=== PATIENT | female | born 1955 | race Caucasian/White ===

== ENCOUNTER 2018-05-08 20:59 | Emergency (ER) | payer OTHER | END 2018-05-08 23:38 | disposition home or self-care (01) | LOC: EDH 20:59 | DX: S90.121A Contusion of right lesser toe(s) without damage to nail, initial encounter (principal); E78.5 Hyperlipidemia, unspecified; Z98.51 Tubal ligation status; Z88.2 Allergy status to sulfonamides; X58.XXXA Exposure to other specified factors, initial encounter; Y93.01 Activity, walking, marching and hiking; Y92.89 Other specified places as the place of occurrence of the external cause; Y99.8 Other external cause status | CPT/HCPCS: 73630 ==

== ENCOUNTER 2020-11-08 07:57 | Emergency (ER) | payer OTHER ==
[~2020-11-08] VITALS: Ht 162.6 cm; Wt 59.0 kg
[2020-11-08 07:59] VITALS: BP 159/74
[2020-11-08 10:27] VITALS: BP 145/70
== END 2020-11-08 11:07 | disposition home or self-care (01) ==
LOC: EDH 07:57
DX: S96.911A Strain of unspecified muscle and tendon at ankle and foot level, right foot, initial encounter (principal); Z88.2 Allergy status to sulfonamides; X58.XXXA Exposure to other specified factors, initial encounter; Y93.89 Activity, other specified; Y92.89 Other specified places as the place of occurrence of the external cause; Y99.8 Other external cause status
CPT/HCPCS: 29540; 73600

== ENCOUNTER 2021-08-31 06:10 | Emergency (ER) | payer MEDICARE, OTHER ==
[~2021-08-31] VITALS: Ht 162.6 cm; Wt 67.6 kg
[2021-08-31 06:14] VITALS: BP 134/71
[2021-08-31] MEDS ORDERED: CYCL10TA16 PO (06:42)
[2021-08-31] MEDS ORDERED: NAPR-1180 PO (06:42)
[2021-08-31] MEDS ORDERED: ORPHENADRINE CITRATE 30 MG/ML ML IM SCH (07:00)
[2021-08-31] MEDS ORDERED: MORPHINE 4 MG SYG IM SCH (07:00)
[2021-08-31] MEDS ORDERED: ONDANSETRON ODT 4MG TAB SL SCH (07:00)
== END 2021-08-31 07:19 | disposition home or self-care (01) ==
LOC: EDH 06:10
DX: M62.830 Muscle spasm of back (principal); Z88.2 Allergy status to sulfonamides; M54.6 Pain in thoracic spine
CPT/HCPCS: 96372 ×2; 99284; J2270; J2360

== ENCOUNTER 2022-09-02 16:44 | Inpatient (IN) | payer MEDICARE ==
[~2022-09-02] VITALS: Ht 162.6 cm; Wt 67.2 kg
[~2022-09-02 16:44] MED LIST: CYCL10TA16 PO; NAPR-1180 PO
[2022-09-02 17:15] LABS: BASOPHILS % (AUTO) 0.3 % (0.0-5.0); EOSINOPHILS % (AUTO) 0.4 % (0.0-8.0); HEMATOCRIT 39.3 % (36-48); LYMPHOCYTES % (AUTO) 11.7 % (21.0-51.0); MEAN CORPUSCULAR HEMOGLOBIN 30.4 pg (27.0-33.0); MEAN CORPUSCULAR HGB CONC 34.1 g/dL (32.0-36.0); MEAN CORPUSCULAR VOLUME 89.1 fL (79-99); NEUTROPHILS % (AUTO) 78.3 % (40.0-77.0); PLATELET COUNT (AUTO) 308 K/uL (130-400); RED BLOOD CELL COUNT(AUTO) 4.41 MIL/uL (4.00-5.50); RED CELL DISTRIBUTION WIDTH 12.6 % (11.0-15.5); WHITE BLOOD COUNT (AUTO) 14.8 K/uL (4.8-10.8)
[2022-09-02 17:16] LABS: APPEARANCE,URINE CLOUDY (CLEAR); BILIRUBIN,URINE NEGATIVE (NEGATIVE); COLOR,URINE LIGHT-YELLOW (YELLOW); GLUCOSE, URINE (UA) NEGATIVE (NEGATIVE); KETONES,URINE NEGATIVE (NEGATIVE); LEUKOCYTE ESTERASE ,URINE NEGATIVE Leu/uL (NEGATIVE); NITRATE,URINE NEGATIVE (NEGATIVE); OCCULT BLOOD,URINE SMALL (NEGATIVE); PROTEIN,URINE NEGATIVE (NEGATIVE); UROBILINOGEN,URINE 0.2 mg/dL (0.2-1.0)
[2022-09-02 17:20] LABS: BACTERIA,URINE RARE /HPF (None Seen); MUCUS,URINE RARE LPF (None Seen); SQUAMOUS EPITHELIAL CELL,UR RARE /HPF (0-2); WBC,URINE 0-1 /HPF (0-1)
[2022-09-02] MEDS ORDERED: ZOSYN 3.375GM+NS 50ML 50 ML IVPB ONE (17:26)
[2022-09-02 17:28] LABS: POTASSIUM 3.2 mmol/L (3.5-5.1)
[2022-09-02] MEDS ORDERED: ZOSYN 3.375GM +NS 50ML IVPB ONE (17:30)
[2022-09-02] MEDS ORDERED: ONDANSETRON 4MG INJ IV ONE (17:30)
[2022-09-02] MEDS ORDERED: MORPHINE 4 MG SYG IVP ONE (17:30)
[2022-09-02 17:37] LABS: ALBUMIN 3.3 g/dL (3.5-5.0); TOTAL PROTEIN, SERUM 6.9 g/dL (6.0-8.3)
[2022-09-02] MEDS ORDERED: IOHEXOL-350 75 ML VIAL IV ONE (18:23)
[2022-09-02] MEDS ORDERED: HYDROMORPHONE 1 MG INJ IVP ONE (19:00)
[2022-09-02] MEDS ORDERED: ONDANSETRON 4MG INJ IVP ONE (19:30)
[2022-09-02] MEDS ORDERED: ACETAMINOPHEN 325 MG TAB PO PRN ×2 (20:30)
[2022-09-02] MEDS ORDERED: ONDANSETRON 4MG INJ IV PRN (20:30)
[2022-09-02] MEDS ORDERED: 0.9% NACL 500ML IV.SOLN 500 ML IV ONE (20:30)
[2022-09-02] MEDS: 0.9%NACL 1000ML 1,000 ML IV SCH (20:57)
[2022-09-02] MEDS: ZOSYN 3.375GM+NS 50ML 50 ML IVPB SCH (20:57)
[2022-09-02] MEDS: FAMOTIDINE 20MG VIAL IV SCH (21:52)
[2022-09-02 22:15] LABS: MAGNESIUM 1.7 mg/dL (1.80-2.40); POTASSIUM 3.4 mmol/L (3.5-5.1)
[2022-09-02 22:18] LABS: INR 0.94 (0.85-1.15); PROTHROMBIN TIME 10.3 SEC (9.6-11.6)
[2022-09-02 22:19] LABS: PARTIAL THROMBOPLASTIN TIME 25.6 SEC (26.3-35.5)
[2022-09-02 22:45] VITALS: BP 146/72
[2022-09-02] MEDS ORDERED: HYDROMORPHONE 0.5 MG SYG (0.5MG/0.5ML) IVP ONE (23:00)
[2022-09-03] VITALS (28 sets, daily range): BP systolic 119–170; BP diastolic 47–90
[2022-09-03] MEDS: MORPHINE 4 MG SYG IV PRN (04:01)
[2022-09-03 05:08] LABS: HEMATOCRIT 36.6 % (36-48); MEAN CORPUSCULAR HEMOGLOBIN 30.7 pg (27.0-33.0); MEAN CORPUSCULAR HGB CONC 33.3 g/dL (32.0-36.0); RED BLOOD CELL COUNT(AUTO) 3.98 MIL/uL (4.00-5.50); RED CELL DISTRIBUTION WIDTH 12.5 % (11.0-15.5); WHITE BLOOD COUNT (AUTO) 14.7 K/uL (4.8-10.8)
[2022-09-03] MEDS ORDERED: PREM125 PO (05:20)
[2022-09-03] MEDS ORDERED: MONT-39 PO (05:20)
[2022-09-03] MEDS ORDERED: OXYB15TA19 PO (05:20)
[2022-09-03 05:21] LABS: MAGNESIUM 1.6 mg/dL (1.80-2.40); POTASSIUM 3.2 mmol/L (3.5-5.1)
[2022-09-03] MEDS: ZOSYN 3.375GM+NS 50ML 50 ML IVPB SCH ×3 (05:32→19:47)
[2022-09-03] MEDS: POTASSIUM CHLORIDE 20MEQ/100ML 100 ML IV PRN ×2 (05:33→09:11)
[2022-09-03] MEDS: 0.9%NACL 1000ML 1,000 ML IV SCH ×3 (06:30→19:54)
[2022-09-03] MEDS ORDERED: HYDRALAZINE 20MG/ML VIAL IV PRN (07:30)
[2022-09-03] MEDS ORDERED: MAGNESIUM 2GM PREMIX 50ML 50 ML IV PRN (07:30)
[2022-09-03] MEDS: KETOROLAC 15MG/ML VIAL (15MG/ML) IV PRN ×3 (09:03→19:46)
[2022-09-03] MEDS: FAMOTIDINE 20MG VIAL IV SCH ×2 (09:03→19:46)
[2022-09-03] MEDS ORDERED: PROPOFOL 10 MG/ML 20ML VIAL IV ONE ×2 (14:44→16:43)
[2022-09-03] MEDS ORDERED: FENTANYL CITRATE PF 50 MCG/1 ML 5ML AMP IV ONE (14:44)
[2022-09-03] MEDS ORDERED: MIDAZOLAM HCL 1 MG/ML 2ML VIAL ONE ×2 (14:44→15:02)
[2022-09-03] MEDS ORDERED: ROCURONIUM 10MG/1ML SYR 10 MG/ML ML ONE (14:54)
[2022-09-03] MEDS ORDERED: ROPIVACAINE 0.5% 5MG/ML 30ML IJ ONE (14:59)
[2022-09-03] MEDS ORDERED: LIDOCAINE 1%-EPI 1:100,000 20 ML VIAL IJ ONE (15:00)
[2022-09-03] MEDS ORDERED: ONDANSETRON 4MG INJ ONE (16:20)
[2022-09-03] MEDS ORDERED: NEOSTIGMINE 5MG/5ML SYR IV ONE (16:21)
[2022-09-03] MEDS ORDERED: GLYCOPYRROLATE 1 MG/5 ML SYRINGE ONE (16:21)
[2022-09-03] MEDS ORDERED: KETOROLAC 30MG VIAL (30MG/ML) ONE (16:27)
[2022-09-03] MEDS ORDERED: RACEPINEPHRINE HCL 2.25% 0.5 ML NEB SOLN ONE (16:44)
[2022-09-03] MEDS ORDERED: HYDROMORPHONE 1 MG INJ ONE (16:54)
[2022-09-04] MEDS: MORPHINE 4 MG SYG IV PRN (00:24)
[2022-09-04] MEDS ORDERED: LATA2.5D14 OU (03:01)
[2022-09-04] MEDS ORDERED: TIMO.25OS OU (03:01)
[2022-09-04 04:00] VITALS: BP 99/66
[2022-09-04 04:45] LABS: BASOPHILS % (AUTO) 0.2 % (0.0-5.0); EOSINOPHILS % (AUTO) 0.5 % (0.0-8.0); HEMATOCRIT 34.1 % (36-48); LYMPHOCYTES % (AUTO) 10.6 % (21.0-51.0); MEAN CORPUSCULAR HEMOGLOBIN 30.5 pg (27.0-33.0); MEAN CORPUSCULAR HGB CONC 33.1 g/dL (32.0-36.0); MEAN CORPUSCULAR VOLUME 92.2 fL (79-99); MONOCYTES % (AUTO) 8.5 % (3.0-13.0); NEUTROPHILS % (AUTO) 79.7 % (40.0-77.0); PLATELET COUNT (AUTO) 254 K/uL (130-400); RED CELL DISTRIBUTION WIDTH 12.7 % (11.0-15.5); WHITE BLOOD COUNT (AUTO) 10.2 K/uL (4.8-10.8)
[2022-09-04] MEDS: ZOSYN 3.375GM+NS 50ML 50 ML IVPB SCH ×2 (04:48→12:45)
[2022-09-04] MEDS: KETOROLAC 15MG/ML VIAL (15MG/ML) IV PRN ×2 (04:48→10:39)
[2022-09-04 05:08] LABS: ALBUMIN 2.4 g/dL (3.5-5.0); CREATININE 0.9 mg/dL (0.5-1.5); MAGNESIUM 2.1 mg/dL (1.80-2.40); POTASSIUM 3.7 mmol/L (3.5-5.1); TOTAL PROTEIN, SERUM 5.7 g/dL (6.0-8.3)
[2022-09-04 07:05] VITALS: BP 105/65
[2022-09-04] MEDS ORDERED: MONTELUKAST SODIUM 10 MG TAB PO SCH (09:00)
[2022-09-04] MEDS ORDERED: OXYBUTYNIN CHLORIDE 15 MG PO SCH (09:00)
[2022-09-04] MEDS: FAMOTIDINE 20MG VIAL IV SCH (10:39)
[2022-09-04 11:05] VITALS: BP 123/52
[2022-09-04] MEDS: 0.9%NACL 1000ML 1,000 ML IV SCH (12:30)
[2022-09-04 15:05] VITALS: BP 136/66
== END 2022-09-04 18:15 | disposition home or self-care (01) | DRG 342 ==
LOC: EDH 16:44 → EDHIP 20:12 → 3CH 22:41
PROVIDERS: ADMIT Internal Medicine; ATTEND Internal Medicine
PROC: 0DTJ4ZZ Resection of Appendix, Percutaneous Endoscopic Approach (ICD-10-PCS; principal; 2022-09-03 16:06)
DX: K35.80 Unspecified acute appendicitis (principal); E44.0 Moderate protein-calorie malnutrition; E87.6 Hypokalemia; I10 Essential (primary) hypertension; Z80.0 Family history of malignant neoplasm of digestive organs; Z80.1 Family history of malignant neoplasm of trachea, bronchus and lung; Z80.8 Family history of malignant neoplasm of other organs or systems; Z90.710 Acquired absence of both cervix and uterus; Z68.25 Body mass index [BMI] 25.0-25.9, adult; Z88.2 Allergy status to sulfonamides
CPT/HCPCS: 36415; 74177; 80048; 80053; 81001; 83605; 83690; 83735; 84132; 84484; 85025; 85027; 85610; 85730; 87040; 93005; G0378; J1170; J1885; J2250; J2270; J2405; J2543; J2704; J2710; J2795; J3010; J3475; J3480; J3490; Q9967

== ENCOUNTER 2022-09-21 09:07 | Observation (INO) | payer MEDICARE ==
[~2022-09-21] VITALS: Ht 162.6 cm; Wt 65.4 kg
[~2022-09-21 09:07] MED LIST changes: -CYCL10TA16 PO; +LATA2.5D14 OU; +MONT-39 PO; -NAPR-1180 PO; +OXYB15TA19 PO; +PREM125 PO; +TIMO.25OS OU
[2022-09-21 09:32] LABS: HEMATOCRIT 42.5 % (36-48); MEAN CORPUSCULAR HEMOGLOBIN 30.1 pg (27.0-33.0); MEAN CORPUSCULAR HGB CONC 32.9 g/dL (32.0-36.0); MEAN CORPUSCULAR VOLUME 91.4 fL (79-99); RED BLOOD CELL COUNT(AUTO) 4.65 MIL/uL (4.00-5.50); RED CELL DISTRIBUTION WIDTH 12.7 % (11.0-15.5)
[2022-09-21 09:44] LABS: POTASSIUM 3.8 mmol/L (3.5-5.1)
[2022-09-21 09:48] LABS: ALBUMIN 3.7 g/dL (3.5-5.0); TOTAL PROTEIN, SERUM 7.5 g/dL (6.0-8.3)
[2022-09-21] MEDS ORDERED: PANTOPRAZOLE 40 MG/VIAL IVP ONE (10:00)
[2022-09-21 10:43] LABS: APPEARANCE,URINE CLEAR (CLEAR); BILIRUBIN,URINE NEGATIVE (NEGATIVE); COLOR,URINE LIGHT-YELLOW (YELLOW); GLUCOSE, URINE (UA) NEGATIVE (NEGATIVE); KETONES,URINE NEGATIVE (NEGATIVE); LEUKOCYTE ESTERASE ,URINE NEGATIVE Leu/uL (NEGATIVE); NITRATE,URINE NEGATIVE (NEGATIVE); OCCULT BLOOD,URINE SMALL (NEGATIVE); PH,URINE 7.5 (5.0-8.0); PROTEIN,URINE NEGATIVE (NEGATIVE); UROBILINOGEN,URINE 0.2 mg/dL (0.2-1.0)
[2022-09-21 10:52] LABS: SQUAMOUS EPITHELIAL CELL,UR RARE /HPF (0-2); WBC,URINE 0-1 /HPF (0-1)
[2022-09-21] MEDS ORDERED: TAMSULOSIN HCL 0.4 MG CAP.ER.24H PO ONE (13:00)
[2022-09-21] MEDS ORDERED: METOCLOPRAMIDE 10 MG TABLET PO ONE (13:00)
[2022-09-21] MEDS ORDERED: ONDANSETRON 4MG INJ IV PRN (15:00)
[2022-09-21] MEDS ORDERED: ACETAMINOPHEN 325 MG TAB PO PRN (15:00)
[2022-09-21] MEDS ORDERED: HYDROMORPHONE 0.5 MG SYG (0.5MG/0.5ML) IVP PRN (15:30)
[2022-09-21] MEDS: ZOSYN 3.375GM +NS 50ML IVPB SCH ×2 (15:33→22:42)
[2022-09-21] MEDS: LACTATED RINGERS 1000ML 1,000 ML IV SCH (15:35)
[2022-09-21 15:41] LABS: INR 0.96 (0.85-1.15); PROTHROMBIN TIME 10.5 SEC (9.6-11.6)
[2022-09-21 15:42] LABS: PARTIAL THROMBOPLASTIN TIME 24.8 SEC (26.3-35.5)
[2022-09-21 15:45] LABS: ALBUMIN 3.5 g/dL (3.5-5.0); BILIRUBIN,DIRECT 0.1 mg/dL (0.0-0.3)
[2022-09-21 17:00] VITALS: BP 149/75
[2022-09-21] MEDS ORDERED: IBUP-2077 PO (17:57)
[2022-09-21] MEDS ORDERED: FLUT16H NASAL (18:00)
[2022-09-21] MEDS ORDERED: BIOT10006 PO (18:03)
[2022-09-21] MEDS ORDERED: BIOT1TAB22 PO (18:03)
[2022-09-21] MEDS ORDERED: CALC-866 PO (18:05)
[2022-09-21] MEDS ORDERED: MAGN500C4 PO (18:06)
[2022-09-21 20:00] VITALS: BP 154/63
[2022-09-21] MEDS ORDERED: LATANOPROST 2.5 ML DROPS OU SCH (21:00)
[2022-09-21] MEDS ORDERED: FAMOTIDINE 20MG VIAL IV SCH (21:00)
[2022-09-21 21:32] LABS: HEMATOCRIT 37.6 % (36-48); MEAN CORPUSCULAR HEMOGLOBIN 30.4 pg (27.0-33.0); MEAN CORPUSCULAR HGB CONC 33.5 g/dL (32.0-36.0); MEAN CORPUSCULAR VOLUME 90.8 fL (79-99); RED BLOOD CELL COUNT(AUTO) 4.14 MIL/uL (4.00-5.50); RED CELL DISTRIBUTION WIDTH 12.5 % (11.0-15.5); WHITE BLOOD COUNT (AUTO) 9.9 K/uL (4.8-10.8)
[2022-09-21 23:56] VITALS: BP 140/80
[2022-09-22] MEDS: LACTATED RINGERS 1000ML 1,000 ML IV SCH (00:03)
[2022-09-22 04:00] VITALS: BP 145/81
[2022-09-22] MEDS: ZOSYN 3.375GM +NS 50ML IVPB SCH (05:42)
[2022-09-22 05:53] LABS: HEMATOCRIT 38.2 % (36-48); MEAN CORPUSCULAR HEMOGLOBIN 29.9 pg (27.0-33.0); MEAN CORPUSCULAR VOLUME 90.7 fL (79-99); RED BLOOD CELL COUNT(AUTO) 4.21 MIL/uL (4.00-5.50); RED CELL DISTRIBUTION WIDTH 12.6 % (11.0-15.5)
[2022-09-22 06:05] LABS: CREATININE 1.1 mg/dL (0.5-1.5); MAGNESIUM 1.8 mg/dL (1.80-2.40); POTASSIUM 3.8 mmol/L (3.5-5.1)
[2022-09-22] MEDS ORDERED: PANT40TA54 PO (07:35)
[2022-09-22 08:36] VITALS: BP 149/71
[2022-09-22] MEDS ORDERED: ESTROGENS,CONJUGATED 0.625 MG TAB PO SCH (09:00)
[2022-09-22] MEDS ORDERED: PANTOPRAZOLE 40 MG/VIAL IVP SCH (09:00)
[2022-09-22] MEDS ORDERED: MONTELUKAST SODIUM 10 MG TAB PO SCH (09:00)
[2022-09-22] MEDS ORDERED: TIMOLOL MALEATE 0.25% 5 ML BOTTLE OU SCH (09:00)
[2022-09-22] MEDS ORDERED: OXYBUTYNIN 5 MG TAB.SR.24H PO SCH (09:00)
== END 2022-09-22 10:20 | disposition home or self-care, planned readmission (81) ==
LOC: EDH 09:07 → EDHIP 14:59 → INTOOBSV 14:59 → 3DH 17:00
PROVIDERS: ADMIT Hospitalist; ATTEND Hospitalist
DX: K62.5 Hemorrhage of anus and rectum (principal); R10.31 Right lower quadrant pain; R10.32 Left lower quadrant pain; M79.3 Panniculitis, unspecified; K59.00 Constipation, unspecified; D72.829 Elevated white blood cell count, unspecified; H40.9 Unspecified glaucoma; R10.819 Abdominal tenderness, unspecified site; N39.3 Stress incontinence (female) (male); G89.29 Other chronic pain; K37 Unspecified appendicitis; N20.0 Calculus of kidney; Z90.710 Acquired absence of both cervix and uterus; Z90.49 Acquired absence of other specified parts of digestive tract; Z98.51 Tubal ligation status; Z79.899 Other long term (current) drug therapy; Z98.890 Other specified postprocedural states
CPT/HCPCS: 99285; 74176; 96365; 96366 ×4; 96375; 82270; 80053; 83690; 85027 ×3; 85610; 85730; 86850; 86900; 86901; 81001; 36415 ×2; 82977; 83735; 80048; J7120; J3490; J2543 ×3; C9113 ×2; G0378; 80076; 96361

== ENCOUNTER 2023-08-12 00:21 | Emergency (ER) | payer MEDICARE ==
[~2023-08-12] VITALS: Ht 162.6 cm; Wt 63.5 kg
[~2023-08-12 00:21] MED LIST changes: +BIOT10006 PO; +CALC-866 PO; +FLUT16H NASAL; +MAGN500C4 PO; +PANT40TA54 PO
[2023-08-12] MEDS: ONDANSETRON 4MG INJ IVP ONE (00:56)
[2023-08-12] MEDS: 0.9%NACL 1000ML 1,000 ML IV SCH (00:56)
[2023-08-12] MEDS: MORPHINE 4 MG SYG IVP ONE (00:57)
[2023-08-12 01:05] LABS: BASOPHILS # (AUTO) 0.06 K/uL (0.00-0.20); BASOPHILS % (AUTO) 0.6 % (0.0-5.0); EOSINOPHILS # (AUTO) 0.12 K/uL (0.00-0.70); EOSINOPHILS % (AUTO) 1.2 % (0.0-8.0); HEMATOCRIT 41.8 % (36-48); IMMATURE GRANULOCYTE ABSOLUTE 0.02 K/uL (0-1); LYMPHOCYTES # (AUTO) 2.2 K/uL (1.0-4.8); LYMPHOCYTES % (AUTO) 21.6 % (21.0-51.0); MEAN CORPUSCULAR HEMOGLOBIN 30.9 pg (27.0-33.0); MEAN CORPUSCULAR HGB CONC 34.2 g/dL (32.0-36.0); MEAN CORPUSCULAR VOLUME 90.3 fL (79-99); MONOCYTES # (AUTO) 0.9 K/uL (0.1-1.0); MONOCYTES % (AUTO) 8.4 % (3.0-13.0); PLATELET COUNT (AUTO) 308 K/uL (130-400); RED BLOOD CELL COUNT(AUTO) 4.63 MIL/uL (4.00-5.50); RED CELL DISTRIBUTION WIDTH 12.6 % (11.0-15.5); WHITE BLOOD COUNT (AUTO) 10.3 K/uL (4.8-10.8)
[2023-08-12 01:07] LABS: ADD UA MICROSCOPIC YES; APPEARANCE,URINE CLEAR (CLEAR); BILIRUBIN,URINE NEGATIVE (NEGATIVE); COLOR,URINE COLORLESS (YELLOW); GLUCOSE, URINE (UA) NEGATIVE (NEGATIVE); KETONES,URINE NEGATIVE (NEGATIVE); LEUKOCYTE ESTERASE ,URINE NEGATIVE Leu/uL (NEGATIVE); NITRATE,URINE NEGATIVE (NEGATIVE); OCCULT BLOOD,URINE SMALL (NEGATIVE); PH,URINE 5.5 (5.0-8.0); PROTEIN,URINE NEGATIVE (NEGATIVE); UROBILINOGEN,URINE 0.2 mg/dL (0.2-1.0)
[2023-08-12 01:09] LABS: BACTERIA,URINE RARE /HPF (None Seen); SQUAMOUS EPITHELIAL CELL,UR RARE /HPF (0-2); WBC,URINE 0-1 /HPF (0-1)
[2023-08-12 01:20] LABS: POTASSIUM 3.6 mmol/L (3.5-5.1)
[2023-08-12 01:23] LABS: ALBUMIN 3.5 g/dL (3.5-5.0); BILIRUBIN,TOTAL 0.2 mg/dL (0.2-1.0); TOTAL PROTEIN, SERUM 7.2 g/dL (6.0-8.3)
[2023-08-12] MEDS: KETOROLAC 30MG VIAL (30MG/ML) IVP ONE (02:02)
[2023-08-12] MEDS: TAMSULOSIN HCL 0.4 MG CAP.ER.24H PO ONE (02:02)
[2023-08-12 05:16] VITALS: BP 125/63; PULSE 78; RESP 18; O2SAT 97
[2023-08-12] MEDS ORDERED: CYCL-309 PO (05:58)
== END 2023-08-12 06:08 | disposition home or self-care (01) ==
LOC: EDH 00:21
DX: N20.0 Calculus of kidney (principal); I88.0 Nonspecific mesenteric lymphadenitis; Z79.899 Other long term (current) drug therapy; Z90.49 Acquired absence of other specified parts of digestive tract; Z98.890 Other specified postprocedural states; Z88.2 Allergy status to sulfonamides
CPT/HCPCS: 99285; 74176; 96374; 96375; 80053; 85025; 81001; 36415; J7030; J2405; J2270; J1885

== ENCOUNTER 2023-10-12 13:38 | Emergency (ER) | payer MEDICARE ==
[~2023-10-12] VITALS: Ht 162.6 cm; Wt 63.5 kg
[~2023-10-12 13:38] MED LIST changes: +CYCL-309 PO
[2023-10-12 14:04] VITALS: BP 143/62; PULSE 74; RESP 18
[2023-10-12 15:17] LABS: APPEARANCE,URINE CLOUDY (CLEAR); BILIRUBIN,URINE NEGATIVE (NEGATIVE); COLOR,URINE YELLOW (YELLOW); GLUCOSE, URINE (UA) NEGATIVE (NEGATIVE); KETONES,URINE NEGATIVE (NEGATIVE); LEUKOCYTE ESTERASE ,URINE 25 Leu/uL (NEGATIVE); NITRATE,URINE NEGATIVE (NEGATIVE); OCCULT BLOOD,URINE SMALL (NEGATIVE); PH,URINE 5.5 (5.0-8.0); PROTEIN,URINE 10 mg/dL (NEGATIVE); UROBILINOGEN,URINE 0.2 mg/dL (0.2-1.0)
[2023-10-12 15:23] LABS: ADD UA MICROSCOPIC YES
[2023-10-12 15:26] LABS: MUCUS,URINE RARE LPF (None Seen); SQUAMOUS EPITHELIAL CELL,UR MANY /HPF (0-2); YEAST,URINE BUDDING RARE /HPF (None Seen)
[2023-10-12] MEDS: CEFTRIAXONE 1G VIAL IVPB ONE (16:07)
[2023-10-12] MEDS ORDERED: CEPH500B PO (16:25)
[2023-10-12] MEDS: KETOROLAC 30MG VIAL (30MG/ML) IM ONE (16:29)
== END 2023-10-12 16:46 | disposition home or self-care (01) ==
LOC: EDH 13:38
DX: N39.0 Urinary tract infection, site not specified (principal); Z90.49 Acquired absence of other specified parts of digestive tract; Z90.710 Acquired absence of both cervix and uterus
CPT/HCPCS: 99284; 96365; 81001; 96372; J0696; J1885

== ENCOUNTER → 2024-02-13 | Outpatient (CLI) | payer MEDICARE ==
[~2024-02-13] MED LIST changes: +CEPH500B PO
== END | disposition home or self-care (01) ==
LOC: RAH 11:54
PROVIDERS: ATTEND Obstetrics & Gynecology
DX: Z12.31 Encounter for screening mammogram for malignant neoplasm of breast (principal)
CPT/HCPCS: 77067

== ENCOUNTER 2024-08-11 05:12 | Emergency (ER) | payer MEDICARE ==
[~2024-08-11] VITALS: Ht 162.6 cm; Wt 65.3 kg
[~2024-08-11 05:12] MED LIST changes: +AMOX875T2 PO; +DOXY100T21 PO
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
[2024-08-11] MEDS ORDERED: ketOROlac 30MG VIAL (30MG/ML) IVP ONE (06:00)
[2024-08-11] MEDS: CYCLOBENZAPRINE HCL 10 MG TABLET PO ONE (06:02)
[2024-08-11] MEDS: ketOROlac 30MG VIAL (30MG/ML) IM ONE (06:02)
--- NOTE | 2024-08-11 07:01 | NUR ---
SOFT COLLAR APPLIED
[2024-08-11 08:10] VITALS: BP 158/58; PULSE 61; RESP 16; TEMP 97.6; O2SAT 97
--- NOTE | 2024-08-11 08:22 | HMCIMG ---
Exam Type: CT cervical spine without contrast Clinical Information: severe neck pain Comparison: None Technique: Spiral axial images were performed from the base of the skull down to the thoracic vertebral bodies. Both sagittal and coronal reconstructions were performed. CT Dose Index (CTDI): 12.85 mGy Dose Length Product (DLP): 282.6 total Findings: There are degenerative changes. Degenerative disc disease is noted at multiple levels. There is adequate alignment and preservation of normal cervial lordosis. There is facet hypertrophy at multiple levels. IMPRESSION: Degenerative changes as noted. No acute pathology. No fractures seen. This study was performed using dose reduction techniques to include automated exposure control and/or adjustment of the mA and/or kV according to patient size.
[2024-08-11] MEDS ORDERED: METH-662 PO (08:50)
[2024-08-11] MEDS ORDERED: DICL20GE TP (08:50)
[2024-08-11] MEDS: Solu-medROL 125MG VIAL IM ONE (08:51)
[2024-08-11] MEDS: LIDOCAINE HCL 1% 20 ML VIAL INJ ONE (08:51)
== END 2024-08-11 09:16 | disposition home or self-care (01) ==
LOC: EDH 05:12
DX: M62.838 Other muscle spasm (principal); Z79.899 Other long term (current) drug therapy; Z88.2 Allergy status to sulfonamides; Z90.49 Acquired absence of other specified parts of digestive tract; Z90.710 Acquired absence of both cervix and uterus
CPT/HCPCS: 99285; 72125; 96372 ×2; J1885; J2919

== ENCOUNTER 2025-01-01 07:33 | Emergency (ER) | payer MEDICARE ==
[~2025-01-01] VITALS: Ht 162.6 cm; Wt 63.5 kg
[~2025-01-01 07:33] MED LIST changes: +DICL20GE TP; -LATA2.5D14 OU; +LATA2.5D7 OU; +METH-662 PO
[2025-01-01] MEDS: LIDOCAINE 5% TOPICAL PATCH TP ONE (08:33)
[2025-01-01] MEDS ORDERED: CYCL10TA16 PO (09:15)
--- NOTE | 2025-01-01 09:16 | ERN ---
ED Note History of Present Illness Stated Complaint: LEFT KNEE PAIN Chief Complaint: Knee Injury/Swelling Time Seen by MD: 07:40 Dictation: 69-year-old female with left knee sprain and pain after sudden movement two days ago worse with walking and bearing weight. Allergies: Coded Allergies: Sulfa (Sulfonamide Antibiotics) (Unverified Allergy, Intermediate, RASH, 11/05/13) Home Meds Active Scripts Diclofenac Sodium (Voltaren Arthritis Pain) 1 % Gel..gram., 4 GM TP TID for 7 Da ys, #1 TUBE Prov:SAI GOODRICH MD 08/11/24 Methocarbamol (Robaxin) 750 Mg Tab, 1 TAB PO BID for 7 Days, #14 TAB 0 Refills Prov:SAI GOODRICH MD 08/11/24 Doxycycline Monohydrate (Doxycycline Monohydrate) 100 Mg Tablet, 1 TAB PO BID for 7 Days, #14 TAB 0 Refills Prov:DINESH PLATT DO 02/25/24 Amoxicillin (Amoxicillin) 875 Mg Tablet, 1 TAB PO BID for 10 Days, #20 TAB 0 Refills Prov:DINESH PLATT DO 02/22/24 Cephalexin Monohydrate (Keflex) 500 Mg Cap, 500 MG PO BID for 7 Days, #14 CAP Prov:HELEN FALK 10/12/23 Cyclobenzaprine HCl (Cyclobenzaprine HCl) 10 Mg Tablet, 5 MG PO BID PRN for PAIN, #10 TAB 0 Refills Prov:TOAN MCCARTY MD 08/12/23 Pantoprazole Sodium (Pantoprazole Sodium) 40 Mg Tablet.dr, 40 MG PO DAILY, #30 TAB 0 Refills Prov:CJ HORTON 09/22/22 Reported Medications Magnesium Oxide (Magnesium) 500 Mg Capsule, 500 MG PO DAILY, CAP 09/21/22 Cholecalciferol (Vitamin D3) (Vitamin D3) 125 Mcg Tablet, 125 MCG PO DAILY, TAB 09/21/22 Biotin (Biotin) 10,000 Mcg Tab.rapdis, 16818 MCG PO DAILY, TAB 09/21/22 Fluticasone Propionate (Flonase Nasal [place]) 50 Mcg/[place], 50 MCG NASAL DAILY, SPRAY 09/21/22 Timolol Maleate (Timoptic 0.25% Ophth Soln) 20 Drop/Ml Opsol, 1 DROP OU DAILY 09/04/22 Latanoprost (Latanoprost) 2.5 Ml Drops, 1 DROP OU HS 09/04/22 Montelukast Sodium (Montelukast Sodium) 10 Mg Tablet, 10 MG PO AM, TAB 09/03/22 Oxybutynin Chloride (Oxybutynin Chloride ER) 15 Mg Tab.er.24, 15 MG PO DAILY 09/03/22 Estrogens,Conjugated (Premarin) 1.25 Mg Tab, 1.25 MG PO DAILY, TAB 09/03/22 Past Medical History Past Medical History: Kidney Stone, UTI Additional Past Medical Hx: C-DIFF, SHINGLES, BLADDER Surgical History: Appendectomy, Hysterectomy, Other, BTL Surgical History Other: BLADDER LIFT Family History: Negative Social History: Negative Review of System Dictation Constitutional: Negative for fever,chills, and weight loss Eyes: Negative for injury, pain,redness, and discharge ENT: Negative for injury,pain or swelling Cardiovascular: Negative for chest pain, palpitations, and edema Respiratory: Negative for shortness of breath, cough, and wheezing, Abdomen/GI: Negative for abdominal pain, nausea, vomiting, diarrhea, and constipation Back: Negative for injury and pain : Negative for injury, bleeding and discharge MS/Extremity: Per HPI Skin: Negative for rash, and discoloration Neuro: Negative for headache, weakness, numbness, tingling, and seizure Initial Vital Sign VS Vital Signs Date Time Temp Pulse Resp B/P (MAP) Pulse Ox O2 Delivery O2 Flow Rate FiO2 01/01/25 07:36 98.2 63 18 171/75 97 0 01/01/25 08:23 Room Air* 21 Physical Exam Dictation General: awake, alert, NAD Head/Face: Normocephalic, atraumatic Eyes: PERRL, EOMI, vision at baseline ENT: oral cavity clear, TMs clear, no signs of infection Neck: Trachea midline, supple, no nuchal rigidity Cardiovascular: RRR, normal S1/S2, No MRGs, no JVD Respiratory: CTAB, no respiratory distress, No rales or wheezes Abdomen: Soft, non-tender, non-distended, normal bowel sounds, no guarding or rebound. Skin: Warm, dry, normal turgor, no rash MS/Extremity: Pulses equal, no cyanosis, neurovascular intact, FROM, left knee exam mild tenderness with range of motion 2+ pulses ACL PCL intact Neuro: COAx4, GCS 15, strength 5/5, CN 2-12 intact, normal cerebellar exam, normal gait, Psych: Normal behavior, mood, and affect normal ED Course ED Course Orders Procedure Category Date Status Time Knee 3vws Lt RAD 01/01/25 Taken 08:16 Lidocaine (Lidoderm PHA 01/01/25 Complete Patch 5%) 08:30 Ketorolac PHA 01/01/25 Complete Tromethamine 15mg/Ml 08:30 Current Medications Medications (Trade) Dose Ordered Sig/Myrna Route PRN Reason Start Time Stop Time Status Last Admin Dose Admin Ketorolac Tromethamine (toRADol) 15 mg ONCE ONCE IM 01/01/25 08:30 01/01/25 08:31 DC 01/01/25 08:33 Lidocaine (Lidoderm Patch 5%) 1 patch ONCE ONCE TP 01/01/25 08:30 01/01/25 08:31 DC 01/01/25 08:33 Vital Signs Date Time Temp Pulse Resp B/P (MAP) Pulse Ox O2 Delivery O2 Flow Rate FiO2 01/01/25 08:23 98.2 65 17 169/73 98 Room Air* 0 21 01/01/25 07:36 98.2 63 18 171/75 97 0 Medical Decision Making MDM MDM: Differential diagnosis: Rationale: Tests considered and ordered secondary to shared decision making include: Previous outside records reviewed: Old ER visits. Risk of complication and/or morbidity or mortality of patient management: None Medications-Per medication reconciliation Need for hospitalization: Patient does not meet criteria for hospitalization. Need for emergency major/minor surgery: No There are no social concerns with this patient. Prescription drug management Prescriptions will include symptomatic care Patient's prior external medical records from other ER visits were reviewed by me as indicated. Prior testing and results from previous visits were reviewed. Prior tests were taken into account with medical decision making and resource utilization, independent historian/historians were used to obtain complete medical history. I independently interpreted the test that were performed, results were reviewed by me and considered findings on radiology if ordered. Medical management and examination interpretation discussions were had by me with other qualified healthcare professionals as indicated for the patient's care. 69-year-old left knee sprain x-rays stable exam is stable prescriptions given referred to primary care doctor DX & DISP Disposition: Discharge Departure Impression: Primary Impression: Left knee sprain Condition: Stable Scripts Cyclobenzaprine HCl (Flexeril) 10 Mg Tab 10 MG PO BID for muscle sstiffness for 5 Days, #10 TAB 0 Refills Prov: JEISON BARRETT MD 01/01/25 Referrals: KYLE PEREZ [facility] (PCP) JEISON BARRETT MD Jan 01, 2025 09:16
[2025-01-01 09:26] VITALS: BP 158/67; PULSE 68; RESP 14; TEMP 98.4; O2SAT 100
--- NOTE | 2025-01-01 09:28 | NUR ---
PT AAOX4 STABLE NO DISTRESS VITALS WNL PT STATES PAIN IS TOLERABLE NOW ABLE TO WALK WITH SOME ASSISTANCE AND BEAR WEIGHT DOWN ON KNEE. PT GIVEN RX AND INSTRUCTIONS FOR HOME. PT HAS NO IV AT THIS TIME DRIVEN HOME BY FAMILY.
--- NOTE | 2025-01-01 10:13 | HMCIMG ---
EXAM: CR left Knee, 3 View. CLINICAL HISTORY: injury COMPARISON: None provided. FINDINGS: BONES: No acute fracture or aggressive appearing osseous lesion. JOINTS: Chondrocalcinosis of the bilateral menisci likely age-related. The joint spaces show no significant degenerative disease. Small suprapatellar knee joint effusion may reflect internal derangement. SOFT TISSUE: Mild prepatellar and infrapatellar bursitis. IMPRESSION: 1. No acute osseous injury. 2. Small suprapatellar knee joint effusion, possibly reflecting internal derangement. 3. Mild prepatellar and infrapatellar bursitis. /[place]
== END 2025-01-01 09:29 | disposition home or self-care (01) ==
LOC: EDH 07:33
DX: S83.92XA Sprain of unspecified site of left knee, initial encounter (principal); Z79.818 Long term (current) use of other agents affecting estrogen receptors and estrogen levels; Z79.899 Other long term (current) drug therapy; Z87.440 Personal history of urinary (tract) infections; Z87.442 Personal history of urinary calculi; Z88.2 Allergy status to sulfonamides; Z90.49 Acquired absence of other specified parts of digestive tract; Z90.710 Acquired absence of both cervix and uterus; X58.XXXA Exposure to other specified factors, initial encounter; Y93.89 Activity, other specified; Y92.89 Other specified places as the place of occurrence of the external cause; Y99.8 Other external cause status
CPT/HCPCS: 99284; 73562; 96372; J1885